=== PATIENT | female | born 1935 | race Caucasian/White ===

== ENCOUNTER 2020-03-07 20:01 | Emergency (ER) | payer MEDICARE, OTHER ==
[~2020-03-07] VITALS: Ht 167.6 cm; Wt 75.0 kg
[2020-03-07 20:27] VITALS: BP 159/85
--- NOTE | 2020-03-07 21:00 | RAD ---
Exam: Bilateral ribs with PA chest INDICATION: Bilateral rib pain status post fall TECHNIQUE: Frontal view of the chest with frontal and oblique views of the left and right ribs Comparisons: None FINDINGS: The cardiomediastinal silhouette and pulmonary vessels are within normal limits. The lung and pleural spaces are clear. There is a moderate-sized hiatal hernia. No displaced rib fractures. IMPRESSION: 1. No acute cardiopulmonary process. 2. No displaced rib fractures. Electronically signed by: Radha Solomon MD (03/07/2020 8:57 PM) [id number]
--- NOTE | 2020-03-07 21:07 | PHYS DOC ---
Past History Past Medical History: Cancer Past Surgical History: Cancer Surgery Alcohol Use: None General Adult EDM: Chief Complaint: MECHANICAL FALL HPI: HPI: Patient is a [age] year old [sex] who presents with [] Review of Systems: Review of Systems: Constitutional: Denies fever or chills Eyes: Denies redness or eye pain HENT: Denies nasal congestion or sore throat Respiratory: Denies cough or shortness of breath Cardiovascular: Denies chest pain or palpitations GI: Denies abdominal pain, nausea, or vomiting : Denies dysuria or hematuria Musculoskeletal: Denies back pain or joint pain Integument: Denies rash or skin lesions Neurologic: Denies headache, focal weakness or sensory changes Complete systems were reviewed and found to be within normal limits, except as documented in this note. Allergies: Allergies: Allergies Coded Allergies Type Severity Reaction Last Updated Verified No Known Drug Allergies 03/07/20 No Physical Exam: PE: Constitutional: Well developed, well nourished, no acute distress, non-toxic appearance HENT: Normocephalic, atraumatic, oropharynx moist Eyes: PERRL, EOMI, conjunctiva normal, no discharge Neck: Normal range of motion, no tenderness, supple Cardiovascular: Heart rate normal, regular rhythm Lungs & Thorax: Bilateral breath sounds clear to auscultation, no wheezing Abdomen: Soft, no tenderness Skin: Warm, dry, no erythema, no rash Back: No tenderness, no CVA tenderness Extremities: No tenderness, ROM intact, no edema Neurologic: Alert and oriented X 3, normal motor function, normal sensory function, no focal deficits noted Psychologic: Affect normal, judgment normal Current Patient Data: Vital Signs: Vital Signs Date Time Temp Pulse Resp B/P (MAP) Pulse Ox O2 Delivery O2 Flow Rate FiO2 03/07/20 20:27 98.1 70 16 159/85 (109) 96 Room Air EKG: EKG: [] Radiology/Procedures: Radiology/Procedures: PROCEDURE: RIBS BILAT & PA CXR 4+V Exam: Bilateral ribs with PA chest INDICATION: Bilateral rib pain status post fall TECHNIQUE: Frontal view of the chest with frontal and oblique views of the left and right ribs Comparisons: None FINDINGS: The cardiomediastinal silhouette and pulmonary vessels are within normal limits. The lung and pleural spaces are clear. There is a moderate-sized hiatal hernia. No displaced rib fractures. IMPRESSION: 1. No acute cardiopulmonary process. 2. No displaced rib fractures. Electronically signed by: Radha Solomon MD (03/07/2020 8:57 PM) [id number] Course & Med Decision Making: Course & Med Decision Making Pertinent Imaging studies reviewed. (See chart for details) Patient stable for discharge with outpatient follow-up with PCP. Discussed findings and plan with patient, who acknowledges understanding and agreement. Dragon Disclaimer: Dragon Disclaimer: This electronic medical record was generated, in whole or in part, using a voice recognition dictation system. Departure Departure: Impression: Primary Impression: Chest wall contusion Qualified Codes: S20.219A - Contusion of unspecified front wall of thorax, initial encounter Additional Impression: Fall Qualified Codes: W19.XXXA - Unspecified fall, initial encounter Disposition: 01 HOME/RESIDENCE PRIOR TO ADM Condition: STABLE Referrals: VIDA URRUTIA MD (PCP) Patient Instructions: Blunt Chest Trauma, Fall Prevention and Home Safety, [id number], Incentive Spirometer Scripts Tramadol Hcl (TRAMADOL HCL) 50 Mg Tablet 50 MG PO PRN Q6HRS PRN for PAIN, #10 TAB Prov: MALA MIKE DO 03/07/20 Justification of Admission: Justification of Admission: Justification of Admission Dx: N/A MALA MIKE DO Mar 07, 2020 21:07
[2020-03-07] MEDS ORDERED: TRAM50TA PO (21:13)
[2020-03-07] MEDS ORDERED: traMADol 50 MG TABLET PO ONE (21:15)
== END 2020-03-07 21:25 | disposition home or self-care (01) ==
LOC: ER 20:01
DX: S20.212A Contusion of left front wall of thorax, initial encounter (principal); S20.211A Contusion of right front wall of thorax, initial encounter; W18.39XA Other fall on same level, initial encounter; Y93.89 Activity, other specified; Y92.89 Other specified places as the place of occurrence of the external cause; Y99.8 Other external cause status
CPT/HCPCS: 71111; 99283; G0238